=== PATIENT | female | born 1995 | race Caucasian/White ===

== ENCOUNTER 2017-05-03 15:06 | Emergency (ER) | payer OTHER ==
[~2017-05-03] VITALS: Ht 149.9 cm; Wt 43.3 kg
[2017-05-03 15:21] VITALS: Ht 149.9 cm; Wt 43.3 kg
[2017-05-03] MEDS ORDERED: SULFAMETHOXAZOLE/TRIMETHOPRIM DS 800/160MG TAB PO STA (16:10)
[2017-05-03] MEDS ORDERED: SULF800T23 PO (16:17)
[2017-05-03] MEDS ORDERED: PHEN-876 PO (16:17)
--- NOTE | 2017-05-03 16:17 | EMERGENCY ROOM VISIT NOTE ---
ED Visit Note First contact with patient: 15:26 CHIEF COMPLAINT: Frequent and painful urination for one week HISTORY OF PRESENT ILLNESS: Patient is a healthy 21-year-old white female who presents emergency department for evaluation of urinary symptoms. She notes urinary frequency, urgency, and a sense of incomplete emptying. Symptoms have been going on for almost a week. She passes very small volumes of urine with each episode of voiding. She denies back pain, fever, or vaginal discharge. She is on oral contraceptives and is presently menstruating. She denies that she could be . She denies a history of frequent UTIs, but she may have been treated earlier this year for a urinary tract infection. She notes suprapubic discomfort that she rates a 2/10. REVIEW OF SYSTEMS: Review of systems as per HPI. All other systems reviewed were negative. At least 6 systems reviewed. PMH: Electronic medical records are reviewed and summarized as above/below. See Problem List. SOCIAL HISTORY: Patient lives at home. Smoker. PHYSICAL EXAM: Vital Signs: Reviewed Nurse's notes. CONSTITUTIONAL: Patient is a well-appearing year-old white male who is awake and alert and in no acute distress. CARDIOVASCULAR: Regular rate and rhythm. Peripheral pulses easily palpable. RESPIRATORY: Breath sounds equal and clear to auscultation. ABDOMEN: Bowel sounds are present. Abdomen is soft, mildly tender in the suprapubic region, no guarding, rebound or rigidity. No CVA tenderness. INTEGUMENTARY: No lesions or rash, normal skin turgor. LYMPH: No lymphadenopathy. EMERGENCY DEPARTMENT COURSE: Urine dip noted blood and WBCs, test was negative. Given her symptoms, urine culture was ordered and is pending. She was given Bactrim DS one tablet orally in the emergency department. She will also be treated with Pyridium. Differential diagnoses include UTI, cystitis, vaginitis, kidney stone, pyelonephritis, among others. Patient was educated on the worrisome signs or symptoms for which they should return to the emergency department. Medication reconciliation: I attest that I have personally reviewed the patient' s current medication list. Blood pressure screening : Patient was found to have normal blood pressure on screening and does not require follow-up. Problem List Medical Problems: (1) delivery delivered Status: Resolved (2) Conjunctivitis of both eyes Status: Resolved (3) Endometritis following delivery Status: Resolved (4) Failure to progress in labor, delivered, current hospitalization Status: Resolved (5) LABOR Status: Resolved (6) r/o labor Status: Resolved Surgical Problems: (1) History of Status: Resolved (2) History of hernia repair Status: Resolved Current/Historical Medications Scheduled Ethinyl Estrad/Desogestrel (Kariva), 1 TAB PO HS Phenazopyridine HCl (Pyridium), 200 MG PO TID Sulfa/Trimethoprim (Bactrim Ds 800MG/160MG), 1 TAB PO BID Allergies Coded Allergies: No Known Allergies (Unverified , 05/03/17) Vital Signs Date Time Temp Pulse Resp B/P (MAP) Pulse Ox O2 Delivery O2 Flow Rate FiO2 05/03/17 16:39 36.6 81 18 147/94 100 05/03/17 15:21 36.6 81 18 147/94 100 Room Air Laboratory Results Test 05/03/17 15:40 Urine Test NEG (NEG) Medications Administered Medications (Trade) Dose Ordered Sig/Denisse Route Start Time Stop Time Status Last Admin Dose Admin Trimethoprim/ Sulfamethoxazole (Septra Ds 800/ 160MG Tab) 1 tab NOW STAT PO 05/03/17 16:10 05/03/17 16:11 DC 05/03/17 16:18 1 TAB Departure Information Impression Primary Impression: Urinary tract infection Prescriptions Phenazopyridine HCl (Pyridium) 200 Mg Tab 200 MG PO TID, #6 TAB Prov: Ondina Kenny PA 05/03/17 Sulfa/Trimethoprim (Bactrim Ds 800MG/160MG) Tab 1 TAB PO BID, #14 TAB Prov: Ondina Kenny PA 05/03/17 Referrals No Doctor, Assigned (PCP) Patient Instructions [facility] Additional Instructions Trimethoprim-Sulfamethoxazole(Bactrim DS): Take one pill twice daily for 7 days for your urine infection. All antibiotics can cause diarrhea. If this occurs and you feel worse or it does not resolve in 1-2 days follow up with your doctor or return to the Emergency Department as this could be signs of serious underlying problems. Any medication can cause an allergic reaction, stop the pills immediately and return to the ER for rash, hives, breathing difficulties, or swelling. Pyridium 200mg: Take one pill three times daily as needed for urinary discomfort. This medication will turn your urine orange. This is normal and nothing to be concerned about. Ibuprofen(Motrin, Advil) may be used for fever or pain. Use 600mg every six hours as needed. Take with food. Avoid using more than 2400mg in a 24 hour period. Do not use 2400mg per day for more than three consecutive days without physician direction. Prolonged inappropriate use can lead to stomach upset or ulcers. This is available over the counter and typically comes in 200mg tablets. (AND/OR) Acetaminophen(Tylenol) may be used for fever or pain. Use 1000mg every eight hours as needed. Avoid using more than 3000mg in a 24 hour period. This is available over the counter. Read all the package inserts or medication information paperwork provided. If you have any questions or concerns call your primary provider, pharmacist or the ER for assistance. Rest and drink plenty of fluids. Continue current medications. Return to the ER immediately for worsening or persistent abdominal pain, vomiting, fevers, back or flank pain, worsening of your condition, or as needed. Follow up with your primary physician within 2-3 days for a recheck of the current condition.
[2017-05-03 16:39] VITALS: BP 147/94; PULSE 81; TEMP 36.6; O2SAT 100
[2017-05-03] MEDS ORDERED: KRV28 PO (17:19)
== END 2017-05-03 16:40 | disposition home or self-care (01) ==
LOC: C.EDB 15:09 → C.EDD 16:40
DX: N39.0 Urinary tract infection, site not specified (principal); F17.210 Nicotine dependence, cigarettes, uncomplicated

== ENCOUNTER 2017-11-26 01:23 | Emergency (ER) | payer OTHER ==
[~2017-11-26 01:23] MED LIST: KRV28 PO
[2017-11-26 01:36] VITALS: TEMP 36.7
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
[2017-11-26 02:47] LABS: BLOOD UREA NITROGEN 8 mg/dl (7-18); CALCIUM 9.4 mg/dl (8.5-10.1); CARBON DIOXIDE 27 mmol/L (21-32); CREATININE 0.73 mg/dl (0.60-1.20); GLUCOSE 92 mg/dl (70-99); POTASSIUM 4.3 mmol/L (3.5-5.1); SODIUM 148 mmol/L (136-145)
[2017-11-26] MEDS: LORAZEPAM 2 MG/ML 1 ML VIAL ONE ×2 (02:51→03:11)
[2017-11-26] MEDS ORDERED: NURSING VERBAL MED ORDER ONE (03:15)
[2017-11-26] MEDS ORDERED: LORAZEPAM 2 MG/ML 1 ML VIAL IM STA ×2 (03:46→04:12)
[2017-11-26] MEDS ORDERED: HALOPERIDOL LACTATE 5 MG/ML 1 ML VIAL IM STA (03:46)
[2017-11-26] MEDS ORDERED: KETAMINE HCL INJ 50 MG/ML 10 ML VIAL IM STA (04:28)
[2017-11-26 15:55] VITALS: BP 116/72; PULSE 72; O2SAT 95
--- NOTE | 2017-12-08 00:09 | EMERGENCY ROOM VISIT NOTE ---
ED Visit Note First contact with patient: 07:53 I received sign out from Dr. Rodriges who saw patient overnight. Etoh intoxication with etoh 306 at 2am. Received Haldol and Ativan after being violent. Plan to monitor/allow to metabolize and discharge once clinically sober. Patient observed throughout the day on 11/26 with steady improvement and was clinically sober, ambulating with steady gate after > 12 hours observation. Friend arrived to bedside to take patient home. Of note, patient was informed that her grandparents are aware of her ED visit after patient expressed concern for the safety of her daughter to the overnight team and so police verified with her grandparents that her daughter was safe.
== END 2017-11-26 15:56 | disposition home or self-care (01) ==
LOC: EDBD 01:23 → C.EDA 01:25
DX: F10.129 Alcohol abuse with intoxication, unspecified (principal); F91.9 Conduct disorder, unspecified; F17.210 Nicotine dependence, cigarettes, uncomplicated; Z78.1 Physical restraint status